=== PATIENT | female | born 1980 | race Two or more races ===

== ENCOUNTER → 2017-09-12 | Day surgery (SDC) | payer BC ==
[~2017-09-12] MED LIST: HYDROmorphone 2 MG/ML VIAL IV PRN; IV RINGERS,LACTATED 1000ML 1,000 ML IV SCH; LIDOCAINE 1% PF 2 ML VIAL. ID PRN; LISI10TA2 PO; MIDAZOLAM HCL/PF 2 MG/2 ML VIAL. IV PRN; MORPHINE SULFATE 2 MG/ML DISP.SYRIN. IV PRN; ONDANSETRON PF 4 MG/2 ML VIAL. IV PRN; PANT40TA3 PO; PROCHLORPERAZINE 10 MG/2 ML VIAL. IV PRN; PROPOFOL 20 ML IV ONE; fentaNYL PF VIAL 100 MCG/2 ML VIAL IV PRN
[2017-09-12 08:02] LABS: NEG OBC UR NEG; POS OBC UR POS
[2017-09-12 09:10] VITALS: BP 124/74
--- NOTE | 2017-09-13 11:54 | PATHOLOGY ---
PATHOLOGY REPORT * * * * * * * * FINAL DIAGNOSIS: Colon biopsy, sigmoid polyp: - Hyperplastic polyp. COMMENT: There are no adenomatous changes or evidence of malignancy. (JPM:pit; 09/13/2017) REPORT ELECTRONICALLY SIGNED BY: Rustam Colunga M.D. DATE/TIME: 09/13/2017 11:53 * * * * * * * * GROSS PATHOLOGY: Received in formalin labeled "Sirena Vallejo, sigmoid polyp," are 2 segments of suazo soft tissue measuring 0.5 x 0.2 x 0.3 cm in aggregate dimensions and ranging from 0.2 to 0.3 cm in maximum dimension. The specimen is submitted entirely in cassette A1. (TSD; 09/12/2017) INITIAL CPT CODE(S): A; 89002 Professional services performed by [facility] [place] [address] Technical services performed by [facility] at [address] [place] [address], [address], [place] [address]. SPECIMEN(S) RECEIVED: A.Sigmoid polyp CLINICAL HISTORY: Screening PATIENT: SIRENA VALLJEO /AGE: 212/10/1980 (Age: 36) PATIENT #: [id number] ALT CASE #: SPECIMEN COLLECTION DATE: 09/12/2017 SPECIMEN RECEIVED DATE: 09/12/2017 [facility] - [address] [place] [address] - PHONE: [phone] * * * END OF REPORT * * *
== END ==
LOC: ENDOS 07:23
PROVIDERS: ATTEND Internal Medicine Gastroenterology
DX: K63.5 Polyp of colon (principal); K64.1 Second degree hemorrhoids; I10 Essential (primary) hypertension; E66.9 Obesity, unspecified; K21.9 Gastro-esophageal reflux disease without esophagitis; Z87.442 Personal history of urinary calculi; Z98.890 Other specified postprocedural states; Z90.49 Acquired absence of other specified parts of digestive tract
CPT/HCPCS: 45380; 81025; 88305; J2704

== ENCOUNTER → 2018-08-07 | Day surgery (SDC) | payer BC ==
[~2018-08-07] MED LIST changes: -HYDROmorphone 2 MG/ML VIAL IV PRN; -MORPHINE SULFATE 2 MG/ML DISP.SYRIN. IV PRN; -ONDANSETRON PF 4 MG/2 ML VIAL. IV PRN; -PROCHLORPERAZINE 10 MG/2 ML VIAL. IV PRN
[2018-08-07 07:40] VITALS: BP 133/89
--- NOTE | 2018-08-07 08:34 | HP ---
ADMIT DATE: 08/07/2018 REFERRING PHYSICIAN: Dr. Santos Tolliver. HISTORY OF PRESENT ILLNESS: A 37-year-old female with past medical history significant for hypertension, reflux, rheumatic fever, colonic polyps seen with change in bowels, alternating diarrhea and constipations, who has had hysterectomy and cholecystectomy. She has had colon polyps in the past. With the continued symptoms, she requests additional evaluation without improvement on the fodmap diet for IBS. PAST MEDICAL HISTORY: Hypertension, rheumatic fever, history of colonic polyps, status post cholecystectomy, status post hysterectomy. ALLERGIES: None. MEDICATIONS: Include lisinopril, pantoprazole 40 mg daily. FAMILY HISTORY: Significant for colon cancer with her father, diabetes in multiple family members, esophageal cancer with her father. REVIEW OF SYSTEMS: Per records. PHYSICAL EXAMINATION: GENERAL: Reveals a well-nourished, well-developed female. VITAL SIGNS: Temperature is 97.8, pulse 68, respirations 20. HEENT: Reveals normocephalic and atraumatic head. Pupils and extraocular muscles are not tested. Sclerae anicteric. NECK: Supple. LUNGS: Clear. CARDIOVASCULAR: Reveals S1, S2 without S3, S4 or appreciable murmur. ABDOMEN: Reveals soft abdomen, normal bowel sounds without appreciable hepatosplenomegaly. EXTREMITIES: Reveals no cyanosis, clubbing or edema. IMPRESSION AND PLAN: Diffuse abdominal pain with alternating diarrhea and constipation, etiology yet to be determined. Irritable bowel syndrome, celiac disease, inflammatory bowel disease are in the differential; therefore, recommend upper endoscopy. If this is unrevealing, then further consideration to IBS therapy would be pursued. RAMANDEEP WOOD MD DR: GLORIA/dada JOB#: [id number] / [id number]
--- NOTE | 2018-08-08 16:09 | PATHOLOGY ---
[facility] Accession Number: [id number] . 01 Material submitted: . DUODENAL BIOPSIES . 01 Clinical history: . Abdominal pain . 02 Diagnosis: Duodenal biopsies: - Mild nonspecific duodenitis. (JPM:noé; 08/08/2018) QMS/08/08/2018 . 02 Comment: Sections of the duodenal biopsy reveal multiple segments of duodenal and small intestinal mucosa which show mild chronic inflammation with the presence of a few lymphoid nodules and with a few scattered admixed neutrophils and eosinophils. There are no sprue-like changes. (JPM:noé; 08/08/2018) . 02 Electronically signed: . Rsutam Colunga MD, Pathologist NPI- [id number] . 01 Gross description: . Received in formalin labeled "Genevieve, Sirena, duodenal BX's," are multiple segments of suazo soft tissue measuring 1.6 x 0.4 x 0.2 cm in aggregate dimensions. The specimen is filtered and entirely submitted in cassette A1. (TSD; 08/07/2018) TOB/TOB . 02 Pathologist provided ICD-10: K29.80 . 02 CPT . 396186 Specimen Comment: A courtesy copy of this report has been sent to Specimen Comment: [phone], . Specimen Comment: Report sent to / DR SPARKS Performed at: 01 [facility] [address], [place] [id number] MD Anup Gregory MD Phone: [phone] Performed at: 02 [facility] [address] [place], [place] [id number] MD Rustam Colunga MD Phone: [phone]
== END | disposition home or self-care (01) ==
LOC: SURG 06:05
PROVIDERS: ATTEND Internal Medicine Gastroenterology
DX: K29.80 Duodenitis without bleeding (principal); K31.89 Other diseases of stomach and duodenum; Z98.84 Bariatric surgery status; I10 Essential (primary) hypertension; K21.9 Gastro-esophageal reflux disease without esophagitis; Z86.010 Personal history of colon polyps; Z90.49 Acquired absence of other specified parts of digestive tract; Z90.710 Acquired absence of both cervix and uterus; Z79.899 Other long term (current) drug therapy; Z80.0 Family history of malignant neoplasm of digestive organs; Z83.3 Family history of diabetes mellitus
CPT/HCPCS: 43239; J2704; 88305